=== PATIENT | female | born 1970 | race Caucasian/White ===

== ENCOUNTER 2016-05-20 05:43 | Day surgery (SDC) | payer BC ==
[~2016-05-20] VITALS: Ht 162.6 cm; Wt 56.7 kg
[~2016-05-20 05:43] MED LIST: B COMPLETE1 EACH PO; BEYAZ 28 TABLE1 EACH PO; FLONASE16 G1 BOTH NARES; VITAMIN C1000 MG PO
[2016-05-20 06:20] VITALS: BP 153/69
[2016-05-20 11:30] VITALS: BP 120/56
[2016-05-20 12:36] VITALS: BP 118/58
[2016-05-20 14:30] VITALS: BP 118/65
[2016-05-20 15:38] VITALS: BP 116/63
== END 2016-05-20 15:48 | disposition home or self-care (01) ==
LOC: SDC 05:43
PROC: 09RA0JZ Replacement of Left Auditory Ossicle with Synthetic Substitute, Open Approach (ICD-10-PCS; principal; 2016-05-20)
DX: H90.72 Mixed conductive and sensorineural hearing loss, unilateral, left ear, with unrestricted hearing on the contralateral side (principal); H80.92 Unspecified otosclerosis, left ear
CPT/HCPCS: J0131; J0171; J0690; J1100; J2250; J2405; J2550; J2710; J2765; J3010; J7050; L8613